=== PATIENT | female | born 1985 | race Caucasian/White ===

== ENCOUNTER 2018-05-28 05:23 | Day surgery (SDC) | payer OTHER ==
[2018-05-28] MEDS: DEXAMETHASONE 4 MG/ML 1 ML INJ
[2018-05-28] MEDS ORDERED: FENTAnyl 50 MCG/ML VIAL (07:43)
[2018-05-28] MEDS ORDERED: MIDAZOLAM 1 MG/ML 2 ML INJ (07:43)
[2018-05-28] MEDS ORDERED: LIDOCAINE 2% (SDV) 5 ML INJ (08:59)
[2018-05-28] MEDS ORDERED: PROPOFOL 20 ML (08:59)
[2018-05-28] MEDS ORDERED: CEFAZOLIN 1 GM INJ (08:59)
[2018-05-28] MEDS ORDERED: ONDANSETRON 4 MG INJ (09:00)
[2018-05-28] MEDS: BUPIVACAINE 0.5% (SDV) 30 ML INJ (09:06)
[2018-05-28] MEDS: LIDOCAINE 2% (MDV) 20 ML INJ (09:06)
[2018-05-28] MEDS: POLYMYXIN/BACITRACIN 1L IRRIG (09:06)
[2018-05-28] MEDS ORDERED: METOCLOPRAMIDE 10 MG INJ IV (09:30)
[2018-05-28] MEDS ORDERED: ONDANSETRON 4 MG INJ IV (09:30)
[2018-05-28] MEDS ORDERED: MEPERIDINE 25 MG INJ IV (09:30)
[2018-05-28] MEDS ORDERED: HYDROmorphONE 1 MG/5 ML IV SYRINGE IV ×2 (09:30)
[2018-05-28] MEDS ORDERED: KETOROLAC 30 MG INJ IV (09:30)
[2018-05-28] MEDS ORDERED: DIPHENHYDRAMINE 50 MG INJ IV (09:30)
[2018-05-28] MEDS ORDERED: FENTAnyl 50 MCG/ML VIAL IV (09:30)
== END 2018-05-28 10:55 | disposition home or self-care (01) ==
LOC: SDS 05:23
DX: M21.611 Bunion of right foot (principal); M20.11 Hallux valgus (acquired), right foot
CPT/HCPCS: 28299; 73630; 88304; 88311